=== PATIENT | female | born 1985 | race Caucasian/White ===

== ENCOUNTER → 2017-03-10 | Outpatient (CLI) | payer OTHER, MEDICAID ==
[~2017-03-10] MED LIST: ACET50TA PO; ALBU17IN INH; IBUP-1114 PO; LEVOTAB10 PO; MONT10TA2 PO
[2017-03-10 19:19] LABS: BASO % 0.3 % (0.0-1.0); EOS # 0.1 K/mm3 (0.0-0.50); LARGE UNSTAINED CELL # 0.1 K/mm3 (0.0-0.4); LARGE UNSTAINED CELL % 1.7 % (0.0-4.0); LYMPH # 1.6 K/mm3 (1.5-4.5); LYMPH % 22.5 % (24.0-44.0); MEAN CORPUSCULAR HEMOGLOBIN 29.2 pg (27.0-33.0); MEAN CORPUSCULAR HGB CONC 33.1 g/dl (32.0-36.5); MEAN CORPUSCULAR VOLUME 88.1 fl (80.0-96.0); MONO # 0.5 K/mm3 (0.0-0.8); MONO % 6.4 % (0.0-5.0); NEUTROPHILS # 4.8 K/mm3 (1.8-7.7); NEUTROPHILS % 68.2 % (36.0-66.0); PLATELET COUNT, AUTOMATED 306 k/mm3 (150-450); RED CELL DISTRIBUTION WIDTH 12.6 % (11.5-14.5)
[2017-03-11 11:27] LABS: HBsAg Prenatal NEGATIVE (NEGATIVE)
== END ==
LOC: M SMT 11:39
PROVIDERS: ATTEND Advanced Practice Midwife
DX: Z34.81 Encounter for supervision of other normal pregnancy, first trimester (principal)

== ENCOUNTER → 2017-03-29 | Outpatient (CLI) | payer MEDICAID ==
[2017-03-31 00:07] LABS: ANTI PARVO VIRUS LEVEL IGG 0.4 index (0.0-0.8); ANTI PARVO VIRUS LEVEL IgM 0.1 index (0.0-0.8)
== END ==
LOC: M SMT 10:00
PROVIDERS: ATTEND Specialist
DX: B34.3 Parvovirus infection, unspecified (principal)

== ENCOUNTER → 2017-04-28 | Outpatient (CLI) | payer MEDICAID, OTHER ==
[2017-04-28 13:32] LABS: FREE T4 1.01 NG/DL (0.76-1.46)
== END ==
LOC: M SMT 09:34
PROVIDERS: ATTEND Advanced Practice Midwife
DX: F41.9 Anxiety disorder, unspecified (principal)

== ENCOUNTER → 2017-06-09 | Outpatient (CLI) | payer OTHER ==
--- NOTE | 2017-06-09 13:18 | REP ---
OB ULTRASOUND: Real-time sonographic evaluation of the gravid uterus performed. There is a single living intrauterine gestation. The estimated gestational age is 19 weeks 2 days with EDC 11/01/2017. BPD 43 mm 19 weeks 1 day HC 169 mm 19 weeks 4 days AC 139 mm 19 weeks 2 days FL 30 mm 19 weeks 1 day HC/AC ratio 1.22 within normal range. Estimated weight 282 grams. Cervix is closed and measures 4.3 cm in length. heart rate 147 beats per minute. SEEN/GROSSLY UNREMARKABLE Lateral ventricles Yes Posterior fossa Yes Upper lip Yes Four-chamber heart Yes LVOT Yes RVOT Yes Stomach Yes Cord insertion Yes Three vessel cord Yes Kidneys Yes Bladder Yes Spine Yes position vertex. Placenta is anterior and grade 0 with no previa or abruption. Amniotic fluid within normal limits. Signed by Fly De La Torre MD 06/09/2017 01:32 P
== END ==
LOC: M SMT 09:54
PROVIDERS: ATTEND Specialist
DX: Z34.82 Encounter for supervision of other normal pregnancy, second trimester (principal)

== ENCOUNTER → 2017-08-02 | Outpatient (CLI) | payer OTHER ==
[2017-08-02 20:18] LABS: BASO % 0.4 % (0.0-1.0); EOS # 0.1 10^3/uL (0.0-0.50); EOS % 1.7 % (0.0-3.0); IMMATURE GRANULOCYTE % 0.7 % (0-0); LYMPH # 1.5 10^3/uL (1.5-4.5); LYMPH % 18.3 % (24.0-44.0); MEAN CORPUSCULAR HEMOGLOBIN 29.5 pg (27.0-33.0); MEAN CORPUSCULAR HGB CONC 32.4 g/dl (32.0-36.5); MEAN CORPUSCULAR VOLUME 91.1 fl (80.0-96.0); MONO # 0.6 10^3/uL (0.0-0.8); MONO % 7.8 % (0.0-5.0); NEUTROPHILS # 5.8 10^3/uL (1.8-7.7); NEUTROPHILS % 71.1 % (36.0-66.0); PLATELET COUNT, AUTOMATED 222 10^3/uL (150-450); RED CELL DISTRIBUTION WIDTH 13.5 % (11.5-14.5); WHITE BLOOD COUNT 8.2 10^3/uL (4.0-10.0)
[2017-08-02 21:00] LABS: ADD MORPHOLOGY? NO
== END ==
LOC: M SMT 13:04
PROVIDERS: ATTEND Advanced Practice Midwife
DX: Z34.83 Encounter for supervision of other normal pregnancy, third trimester (principal)

== ENCOUNTER → 2017-08-05 | Outpatient (REF) | payer OTHER | LOC: M LAB REF 13:03 | PROVIDERS: ATTEND Obstetrics & Gynecology | DX: Z34.82 Encounter for supervision of other normal pregnancy, second trimester (principal); Z11.3 Encounter for screening for infections with a predominantly sexual mode of transmission ==

== ENCOUNTER → 2017-10-06 | Outpatient (REF) | payer OTHER | LOC: M LAB REF 13:12 | PROVIDERS: ATTEND Obstetrics & Gynecology | DX: Z34.83 Encounter for supervision of other normal pregnancy, third trimester (principal); Z36.85 Encounter for antenatal screening for Streptococcus B ==

== ENCOUNTER 2017-10-21 22:09 | Inpatient (IN) | payer OTHER ==
[~2017-10-21] VITALS: Ht 162.6 cm; Wt 77.0 kg
[2017-10-21] MEDS ORDERED: PRENTAB9 PO (22:19)
[2017-10-21 22:23] VITALS: BP 133/86
[2017-10-21] MEDS ORDERED: LR 1,000 ML IV SCH (22:42)
[2017-10-21] MEDS ORDERED: LACTATED RINGER'S 1000 ML IV STA (22:42)
[2017-10-21 23:02] LABS: MEAN CORPUSCULAR HEMOGLOBIN 29.9 pg (27.0-33.0); MEAN CORPUSCULAR HGB CONC 34.7 g/dl (32.0-36.5); MEAN CORPUSCULAR VOLUME 86.2 fl (80.0-96.0); PLATELET COUNT, AUTOMATED 245 10^3/uL (150-450); RED CELL DISTRIBUTION WIDTH 12.9 % (11.5-14.5); WHITE BLOOD COUNT 10.1 10^3/uL (4.0-10.0)
[2017-10-21] MEDS ORDERED: OXYTOCIN 30 UNITS IN 0.9% NaCl 500ML IV BAG (J2590) As Ordered ONE (23:21)
[2017-10-21 23:29] VITALS: BP 140/74
[2017-10-21] MEDS ORDERED: OXYTOCIN DRIP 30 UNITS in APPROPRIATE DILUENT 1 EA IV SCH (23:39)
[2017-10-21 23:44] VITALS: BP 129/86
[2017-10-21] MEDS ORDERED: DOCUSATE SODIUM 100 MG CAP PO PRN (23:45)
[2017-10-21] MEDS ORDERED: LIDOCAINE 1% MDV INJ 50 ML VIAL INFIL ONE (23:45)
[2017-10-21] MEDS ORDERED: RHOGAM 300 MCG (1500 IU) INJ (J2790) IM SCH (23:45)
[2017-10-21] MEDS ORDERED: DIBUCAINE 1% OINTMENT 30GM TOP PRN (23:45)
[2017-10-21] MEDS ORDERED: METHYLERGONOVINE MALEATE 0.2 MG TAB PO PRN (23:45)
[2017-10-21] MEDS ORDERED: ONDANSETRON 4MG/2ML VIAL (J2405) IV PRN (23:45)
[2017-10-21] MEDS ORDERED: MEASLES,MUMPS,RUBELLA VACCINE INJ (MMR-II) (90707) SC SCH (23:45)
[2017-10-21] MEDS ORDERED: ACETAMINOPHEN 500 MG TAB PO PRN (23:45)
[2017-10-21] MEDS ORDERED: ANUSOL HC CREAM 30GM TOP PRN (23:45)
[2017-10-21] MEDS ORDERED: OXYTOCIN INJ 10 UNITS/ML VIAL (J2590) IM ONE (23:45)
--- NOTE | 2017-10-21 23:52 | HPE ---
DATE OF ADMISSION: 10/21/2017 Alayna is a 32-year-old 3, para 1-0-1-1 at 38-2/7 weeks gestation with an estimated date of confinement (EDC) of 11/02/2017 based on last menstrual period and confirmed by first trimester ultrasound. She presents to labor and delivery today with a report of uncomfortable contractions that started at approximately 1944 hours and have gotten closer and more uncomfortable. She does report some positive bloody show. Denies leakage of fluid and her fetus has been active. care initiated at [facility] in the first trimester. course complicated by anxiety and depression. No current use of antidepressants. OBSTETRICAL HISTORY: 2014: Spontaneous miscarriage. August of 2016: At 39 weeks gestation, she had a spontaneous vaginal delivery for a live male weighing 6 pounds 3 ounces. OBSTETRIC LABS: Blood type O+, antibody screen negative, rubella immune, VDRL nonreactive. Urine culture no growth. Hepatitis B surface antigen negative, HIV negative. Hepatitis C antibody nonreactive. Gonorrhea and chlamydia negative. She did decline genetic serum screening markers. Her gestational diabetic screening was normal and her GBS was positive. PAST MEDICAL HISTORY: Asthma, depression, anxiety, childhood varicella. SURGERIES: Rhinoplasty and breast augmentation. FAMILY HISTORY: Diabetes and hypertension. SOCIAL HISTORY: The patient is single. However, the father of the baby is at bedside and supportive. She is a nonsmoker. Denies alcohol and drug use. No history of sexually transmitted infections and denies a history of abuse - physical, sexual and emotional. ALLERGIES: AMOXICILLIN. CURRENT MEDICATIONS: - vitamin - Zantac OBJECTIVE: Temperature 97.4, pulse 115, respirations are 20, blood pressure 133/86. She appears very uncomfortable. She is moaning and tensing with her contractions. heart rate is 140 with moderate variability, positive accelerations, no decelerations observed. Laura every 2 minutes, strong to palpation. Abdomen is gravid, cephalic presentation. Estimated weight 6 pounds. Sterile vaginal exam: 7-8 cm dilated, 90% effaced, -1 station, bulging bag of water and large amount of show. ASSESSMENT: Intrauterine at 38-2/7, heart rate category 1, active labor. PLAN: Admit the patient to labor and delivery, labs, out of bed ad vaishali. Start intravenous (IV) antibiotics for GBS prophylaxis. The patient does desire an epidural. IV fluid bolus will be started. I do anticipate a normal spontaneous vaginal delivery.
[2017-10-21] MEDS: IBUPROFEN 800 MG TAB PO PRN (23:57)
--- NOTE | 2017-10-21 23:58 | DN ---
DATE: 10/21/2017 Alayna is a 32-year-old 3, para 2-0-1-2 now who was admitted to labor and delivery in active labor. Her labor progressed physiologically and quickly. She had spontaneous rupture of membranes for a moderate amount of clear odorless fluid at 2250 hours. She was also fully dilated at 2250 with a strong urge to push. She pushed to a normal spontaneous vaginal delivery of a live male infant in direct OP position at 2254 hours. There was no nuchal cord. The shoulders delivered with ease, and the corpus immediately followed. The was placed on the maternal abdomen crying and active. His mouth and nares were bulb suctioned. The cord was clamped times two and cut by the father of the baby once the pulsations ceased. A spontaneous expulsion with an intact placenta with three-vessel cord by Schultze mechanism was at 2259 hours. Uterine hemostasis achieved with IV Pitocin rapid infusion, 10 units of Pitocin intramuscularly (IM) and uterine fundal massage. Estimated blood loss 400 mL. Perineum and vagina were inspected, noted to have a first-degree midline laceration. The laceration was infiltrated with 1% lidocaine and repaired with #3-0 Rapide in the usual fashion. Mom and baby are stable at this time. [place] male weighed 6 pounds 7 ounces, 2910 grams, scores are pending at this time. Mom plans to both breast and bottle feed, and the family have named their son Santiago. At the close of delivery, lap counts, instrument counts and needle counts were correct and verified.
[2017-10-21 23:59] VITALS: BP 130/79
[2017-10-22 00:14] VITALS: BP 118/85
[2017-10-22 00:29] VITALS: BP 119/88
[2017-10-22 01:00] VITALS: BP 116/62
[2017-10-22 06:03] VITALS: BP 115/64
[2017-10-22] MEDS ORDERED: CEFAZOLIN SOD 1 GM in APPROPRIATE DILUENT 1 EA IV SCH (06:45)
[2017-10-22] MEDS: PRENATAL VITAMINS CHEWABLE TABLET PO SCH (08:03)
[2017-10-22] MEDS: IBUPROFEN 800 MG TAB PO PRN ×2 (08:04→15:56)
[2017-10-22 18:00] VITALS: BP 117/58
[2017-10-23 06:00] VITALS: BP 97/50
[2017-10-23] MEDS: PRENATAL VITAMINS CHEWABLE TABLET PO SCH (08:03)
[2017-10-23] MEDS: IBUPROFEN 800 MG TAB PO PRN (08:03)
[2017-10-23] MEDS ORDERED: IBUP-1114 PO (10:58)
[2017-10-23] MEDS ORDERED: ACET50TA PO (10:58)
[2017-10-23] MEDS ORDERED: FLUCONAZOLE 50MG TABLET PO ONE (13:00)
== END 2017-10-23 12:30 | disposition home or self-care (01) | DRG 560 ==
LOC: M LDO 22:09 → M LDI 22:38 → M OBS 10-22 01:20
PROVIDERS: ADMIT Advanced Practice Midwife; ATTEND Advanced Practice Midwife
PROC: 10E0XZZ Delivery of Products of Conception, External Approach (ICD-10-PCS; principal; 2017-10-21)
PROC: 0HQ9XZZ Repair Perineum Skin, External Approach (ICD-10-PCS; 2017-10-21)
DX: O70.0 First degree perineal laceration during delivery (principal); O99.820 Streptococcus B carrier state complicating pregnancy; Z37.0 Single live birth; Z3A.38 38 weeks gestation of pregnancy; Z88.0 Allergy status to penicillin

== ENCOUNTER → 2018-07-27 | Outpatient (REF) | payer OTHER ==
[2018-07-29 14:23] LABS: HPV HYBRID CAPTURE II Negative (Negative)
== END ==
LOC: M LAB REF 17:18
DX: Z12.4 Encounter for screening for malignant neoplasm of cervix (principal)

== ENCOUNTER → 2018-12-05 | Outpatient (REF) | payer OTHER ==
[~2018-12-05] MED LIST changes: -ACET50TA PO; +MAPA500T2 PO; +PRENTAB9 PO
[2018-12-06 10:22] LABS: FOLATE > 24.0 NG/ML
[2018-12-07 11:18] LABS: VITAMIN B12 LEVEL 573 PG/ML (232-1245)
== END ==
LOC: M LABNEURO 17:16
PROVIDERS: ATTEND Psychiatry & Neurology Neurology
DX: E53.8 Deficiency of other specified B group vitamins (principal)

== ENCOUNTER → 2019-07-19 | Outpatient (REF) | payer OTHER ==
[2019-07-19 20:46] LABS: FREE T4 0.89 NG/DL (0.76-1.46); VITAMIN B12 LEVEL 583 PG/ML
[2019-07-20 09:03] LABS: FOLATE > 24.0 NG/ML
[2019-07-27 00:08] LABS: VITAMIN B1 LEVEL WHOLE BLOOD 224.3 nmol/L (66.5-200.0); VITAMIN E(ALPHA TOCOPHEROL) 26.9 mg/L (5.9-19.4); VITAMIN E(GAMMA TOCOPHEROL) 0.3 mg/L (0.7-4.9)
== END ==
LOC: M LABNEURO 13:59
PROVIDERS: ATTEND Psychiatry & Neurology Neurology
DX: D51.9 Vitamin B12 deficiency anemia, unspecified (principal); R53.83 Other fatigue; E07.9 Disorder of thyroid, unspecified